=== PATIENT | female | born 1940 | race Caucasian/White ===

== ENCOUNTER 2023-03-08 18:48 | Emergency (ER) | payer MEDICARE ==
[2023-03-08 19:00] VITALS: RESP 18; TEMP 97.9
[2023-03-08] MEDS ORDERED: SODIUM CHLORIDE 0.9% 1,000 ML IV STA (19:19)
--- NOTE | 2023-03-08 19:30 | ED ---
General Adult HPI - General Chief complaint: Abdominal Pain Stated complaint: pain in back/side Time Seen by Provider: 03/08/23 19:04 Source: patient Mode of arrival: wheelchair Limitations: no limitations - History of Present Illness Initial comments: Dictation was produced using [employer] dictation software. please excuse any grammatical, word or spelling errors. Chief Complaint: 82-year-old female presents with 1 day of right lower quadrant abdominal pain History of Present Illness: Is a 2-year-old female presents to emergency de partment for right lower quadrant abdominal pain 1 day. Patient states that her pain and she started in the back and now is only in the front. States that she does have history of hysterectomy. She does not have history of appendectomy. No fevers. Vaginal discharge. No nausea vomiting or diarrhea. States that the pain is severe The ROS documented in this emergency department record has been reviewed and confirmed by me. Those systems with pertinent positive or negative responses have been documented in the HPI. All other systems are other negative and/or noncontributory. - Related Data Allergies Allergy/AdvReac Type Severity Reaction Status Date / Time morphine Allergy low blood Verified 03/08/23 19:01 pressure Review of Systems ROS Statement: Those systems with pertinent positive or pertinent negative responses have been documented in the HPI. ROS Other: All systems not noted in ROS Statement are negative. Past Medical History Past Medical History: Hyperlipidemia, Hypertension History of Any Multi-Drug Resistant Organisms: None Reported Past Surgical History: Cholecystectomy, Hysterectomy, Orthopedic Surgery Additional Past Surgical History / Comment(s): rt wrist Past Psychological History: No Psychological Hx Reported Smoking Status: Never smoker Past Alcohol Use History: None Reported Past Drug Use History: None Reported General Exam - General Exam Comments Initial Comments: PHYSICAL EXAM: General Impression: Alert and oriented x3, not in acute distress HEENT: Normocephalic atraumatic, extra-ocular movements intact, pupils equal and reactive to light bilaterally, mucous membranes moist. Cardiovascular: Heart regular rate and rhythm Chest: Able to complete full sentences, no retractions, no tachypnea Abdomen: abdomen soft, no rebound tenderness, pain in McBurney's point, non- distended, no organomegaly Musculoskeletal: Pulses present and equal in all extremities, no peripheral edema Motor: no focal deficits noted Neurological: CN II-XII grossly intact, no focal motor or sensory deficits noted Skin: Intact with no visualized rashes Psych: Normal affect and mood Limitations: no limitations Course Vital Signs 03/08/23 03/08/23 03/08/23 18:54 20:50 21:32 Temperature 97.9 F Pulse Rate 77 78 81 Respiratory 18 18 18 Rate Blood Pressure 90/54 111/72 107/83 O2 Sat by Pulse 97 94 L 96 Oximetry 03/08/23 03/08/23 21:52 22:23 Temperature Pulse Rate 84 89 Respiratory 18 18 Rate Blood Pressure 118/79 103/80 O2 Sat by Pulse 95 96 Oximetry - Reevaluation(s) Reevaluation #1: 03/08/23 19:30 Patient seen and evaluated and ER room #6. Triage vital signs reviewed with blood pressure of 90/54. Reevaluation #2: 03/08/23 21:28 Case discussed with [facility] surgeon on-call, Dr. Broderick. He reviewed the images and did not feel that patient was a good candidate for care at our facility due to aneurysm extending into the chest cavity Reevaluation #3: 03/08/23 21:[address] Bell at [facility] states that he will contact vascular surgeon stat to see if this is a patient amenable for transfer Reevaluation #4: 03/08/23 22:03 Case was discussed with Dr. Bell at [facility]. He did get in contact with vascular surgery who will try to get in contact with vascular surgery attending for transfer. Simultaneously [facility] was contacted for possible transfer. Pending discussion with surgical accepting physician 03/08/23 22:04 Reevaluation #5: 03/08/23 22:13 case discussed with jennifer at [facility] for possible transfer. Pending discussion with specialist for acceptance Medical Decision Making - Medical Decision Making Was pt. sent in by a medical professional or institution (Dr., PA, [employer], urgent care, hospital, or senior living...) When possible be specific @ -No Did you speak to anyone other than the patient for history (EMS, parent, family, police, friend...)? What history was obtained from this source @ -Daughter at the bedside reports that patient is having abdominal pain Did you review nursing and triage notes (agree or disagree)? Why? @ -I reviewed and agree with nursing and triage notes Were old charts reviewed (outside hosp., previous admission, EMS record, old EKG, old radiological studies, urgent care reports/EKG's, senior living records)? Report findings @ -No old charts were reviewed Differential Diagnosis (chest pain, altered mental status, abdominal pain women, abdominal pain men, vaginal bleeding, musculoskeletal, weakness, fever, dyspnea, syncope, headache, dizziness, GI bleed, back pain, seizure, CVA, palpatations, mental health)? @ -DDifferential Abdominal Pain Women: Appendicitis, Cholecystitis, diverticulosis, ischemic bowel, pancreatitis, hepatitis, UTI, gastroenteritis, AAA, incarcerated hernia, bowel obstruction, co nstipation, inflammatory bowel, hepatitis, peptic ulcer disease, splenic infarction, perforated viscus, vulvitis, ovarian torsion, PID, kidney stone, placenta abruption, this is not meant to be an all-inclusive list EKG interpreted by me (3pts min.). @ -None done X-rays interpreted by me (1pt min.). @ -None done CT interpreted by me (1pt min.). @ -CT of the abdomen and pelvis without contrast shows dilated aortic aneurysm with evidence of rupture. CT angiography was ordered showing aortic aneurysm without any active extravasation but with small previous hemorrhage U/S interpreted by me (1pt. min.). @ -None done What testing was considered but not performed or refused? (CT, X-rays, U/S, labs)? Why? @ -None What meds were considered but not given or refused? Why? @ -None Did you discuss the management of the patient with other professionals ( professionals i.e. , PA, [employer], lab, RT, psych nurse, mental health social worker, cheese pancake roller, teacher, life science technical officer, case investigator)? Give summary @ -Discuss with multiple professionals as mentioned above. Case was discussed with Dr. Clay at [facility] who is accepting of patient for transfer. Was smoking cessation discussed for >3mins.? @ -No Was critical care preformed (if so, how long)? @ -yes , 73 minutes Were there social determinants of health that impacted care today? How? (Homelessness, low income, unemployed, alcoholism, drug addiction, transportation, low edu. Level, literacy, decrease access to med. care, group home, rehab)? @ -No Was there de-escalation of care discussed even if they declined (Discuss DNR or withdrawal of care, Hospice)? DNR status @ -No What co-morbidities impacted this encounter? (DM, HTN, Smoking, COPD, CAD, Cancer, CVA, ARF, Chemo, Hep., AIDS, mental health diagnosis, sleep apnea, morbid obesity)? @ -None Was patient admitted / discharged? Hospital course, mention meds given and route, prescriptions, significant lab abnormalities, going to OR and other pertinent info. @ -82-year-old female presents emergency Department with chief complaint of abdominal pain. Vital signs upon arrival are within acceptable limits. Erwin savannah's blood pressure being stable. Patient does not appear to be in acute distress. CT angiography shows ruptured aortic aneurysm. There does not appear to be any active extravasation based off of CT angiography. Patient be transferred to [facility] Undiagnosed new problem with uncertain prognosis? @ -No Drug Therapy requiring intensive monitoring for toxicity (Heparin, Nitro, Insulin, Cardizem)? @ -No Were any procedures done? @ -No Diagnosis/symptom? Acute, or Chronic, or Acute on Chronic? Uncomplicated (without systemic symptoms) or Complicated (systemic symptoms)? @ - ruptured aortic aneurysm Side effects of treatment? @ -No Exacerbation, Progression, or Severe Exacerbation? @ -No Poses a threat to life or bodily function? How? (Chest pain, [place], [place], pneumonia, PE, COPD, DKA, ARF, appy, cholecystitis, CVA, Diverticulitis, Homicidal, Suicidal, threat to staff... and all critical care pts) @ -yes - Lab Data Result diagrams: 03/08/23 19:21 03/08/23 19:21 Lab Results 03/08/23 03/08/23 03/08/23 Range/Units 19:21 19:21 19:21 WBC 9.8 (3.8-10.6) k/uL RBC 4.77 (3.80-5.40) m/uL Hgb 12.8 (11.4-16.0) gm/dL Hct 38.2 (34.0-46.0) % MCV 80.0 (80.0-100.0) fL MCH 26.9 (25.0-35.0) pg MCHC 33.6 (31.0-37.0) g/dL RDW 14.7 (11.5-15.5) % Plt Count 163 (150-450) k/uL MPV 8.9 Neutrophils % 78 % Lymphocytes % 13 % Monocytes % 6 % Eosinophils % 2 % Basophils % 1 % Neutrophils # 7.7 (1.3-7.7) k/uL Lymphocytes # 1.3 (1.0-4.8) k/uL Monocytes # 0.5 (0-1.0) k/uL Eosinophils # 0.2 (0-0.7) k/uL Basophils # 0.0 (0-0.2) k/uL PT 9.6 (9.0-12.0) sec INR 0.9 (<1.2) APTT 23.1 (22.0-30.0) sec Sodium 136 L (137-145) mmol/L Potassium 4.5 (3.5-5.1) mmol/L Chloride 99 (98-107) mmol/L Carbon Dioxide 25 (22-30) mmol/L Anion Gap 12 mmol/L BUN 41 H (7-17) mg/dL Creatinine 1.70 H (0.52-1.04) mg/dL Est GFR (CKD-EPI)AfAm 32 (>60 ml/min/1.73 sqM) Est GFR (CKD-EPI)NonAf 28 (>60 ml/min/1.73 sqM) Glucose 113 H (74-99) mg/dL Plasma Lactic Acid Zion (0.7-2.0) mmol/L Calcium 9.2 (8.4-10.2) mg/dL Magnesium 2.3 (1.6-2.3) mg/dL Total Bilirubin 1.1 (0.2-1.3) mg/dL AST 19 (14-36) U/L ALT 13 (4-34) U/L Alkaline Phosphatase 43 (38-126) U/L Total Protein 6.7 (6.3-8.2) g/dL Albumin 4.0 (3.5-5.0) g/dL 03/08/23 Range/Units 19:21 WBC (3.8-10.6) k/uL RBC (3.80-5.40) m/uL Hgb (11.4-16.0) gm/dL Hct (34.0-46.0) % MCV (80.0-100.0) fL MCH (25.0-35.0) pg MCHC (31.0-37.0) g/dL RDW (11.5-15.5) % Plt Count (150-450) k/uL MPV Neutrophils % % Lymphocytes % % Monocytes % % Eosinophils % % Basophils % % Neutrophils # (1.3-7.7) k/uL Lymphocytes # (1.0-4.8) k/uL Monocytes # (0-1.0) k/uL Eosinophils # (0-0.7) k/uL Basophils # (0-0.2) k/uL PT (9.0-12.0) sec INR (<1.2) APTT (22.0-30.0) sec Sodium (137-145) mmol/L Potassium (3.5-5.1) mmol/L Chloride (98-107) mmol/L Carbon Dioxide (22-30) mmol/L Anion Gap mmol/L BUN (7-17) mg/dL Creatinine (0.52-1.04) mg/dL Est GFR (CKD-EPI)AfAm (>60 ml/min/1.73 sqM) Est GFR (CKD-EPI)NonAf (>60 ml/min/1.73 sqM) Glucose (74-99) mg/dL Plasma Lactic Acid Zion 1.3 (0.7-2.0) mmol/L Calcium (8.4-10.2) mg/dL Magnesium (1.6-2.3) mg/dL Total Bilirubin (0.2-1.3) mg/dL AST (14-36) U/L ALT (4-34) U/L Alkaline Phosphatase (38-126) U/L Total Protein (6.3-8.2) g/dL Albumin (3.5-5.0) g/dL Disposition Clinical Impression: Ruptured aortic aneurysm Disposition: OTHER INSTITUTION NOT DEFINED Condition: Critical Referrals: Lynn Rabago MD [Primary Care Provider] - 1-2 days Time of Disposition: 22:30 - Out of Hospital Transfer - Req. Specs Out of Hospital Transfer - Requested Specifics: Other Emergency Center ([facility])
[2023-03-08 20:01] LABS: Basophils % (A) 1 %; Eosinophils # (A) 0.2 k/uL (0-0.7); Eosinophils % (A) 2 %; HCT 38.2 % (34.0-46.0); HGB 12.8 gm/dL (11.4-16.0); Lymphocytes # (A) 1.3 k/uL (1.0-4.8); Lymphocytes % (A) 13 %; MCH 26.9 pg (25.0-35.0); MCHC 33.6 g/dL (31.0-37.0); Mean Platelet Volume 8.9; Monocytes # (A) 0.5 k/uL (0-1.0); Monocytes % (A) 6 %; Neutrophils # (A) 7.7 k/uL (1.3-7.7); Neutrophils % (A) 78 %; Platelet Count 163 k/uL (150-450); RBC 4.77 m/uL (3.80-5.40); RDW 14.7 % (11.5-15.5); WBC 9.8 k/uL (3.8-10.6)
[2023-03-08 20:13] LABS: Calcium 9.2 mg/dL (8.4-10.2); Magnesium 2.3 mg/dL (1.6-2.3); Potassium 4.5 mmol/L (3.5-5.1); Total Bilirubin 1.1 mg/dL (0.2-1.3); Total Protein 6.7 g/dL (6.3-8.2)
[2023-03-08 20:18] LABS: INR 0.9 (<1.2); Partial Thromboplastin Time 23.1 sec (22.0-30.0); Prothrombin Time 9.6 sec (9.0-12.0)
--- NOTE | 2023-03-08 21:21 | CT ---
EXAMINATION TYPE: CT abdomen pelvis wo con CT DLP: 1472.8 mGycm, Automated exposure control for dose reduction was used. DATE OF EXAM: 03/08/2023 8:49 PM COMPARISON: No direct comparisons CLINICAL INDICATION:Female, 82 years old with history of rlq pain; RLQ abd pain TECHNIQUE: Standard CT of the abdomen and pelvis without IV or oral contrast. Lack of IV or oral co ntrast limits evaluation of solid and hollow organ viscera. Coronal and sagittal reformats were perfo rmed. FINDINGS: LOWER CHEST: Trace right pleural effusion. ABDOMEN LIVER: Few scattered cysts. GALLBLADDER AND BILE DUCTS: Gallbladder versus cyst adjacent to the fossa ligament. PANCREAS: Unremarkable noncontrast appearance. SPLEEN: Unremarkable noncontrast appearance. ADRENAL GLANDS: Unremarkable noncontrast appearance. KIDNEYS AND URETERS: No evidence of hydronephrosis or renal calculus. Bladder renal cysts with larges t involving the inferior pole the right kidney measuring up to 6.6 cm. Largest involving the superior pole the left kidney measuring up to 4.6 cm. There is a hyperdense 2.3 cm exophytic lesion emanating from the inferior pole the left kidney. This is favored to represent a proteinaceous/hemorrhagic cys t. Cortical thinning of both kidneys suggestive of medical renal disease. PELVIS BLADDER: Under distended, limiting evaluation. REPRODUCTIVE: The uterus is surgically absent. ABDOMEN & PELVIS STOMACH AND BOWEL: Colonic diverticulosis without evidence for acute diverticulitis. The appendix is within normal limits. No evidence of bowel obstruction. PERITONEUM/RETROPERITONEUM: No evidence of pneumoperitoneum. There is small amount of hemorrhage into the right retroperitoneum coursing along the iliopsoas muscle. VASCULATURE: There is a bilobed infrarenal abdominal aortic aneurysm the more superior one at the lev el of the renal arteries measures up to 7.8 cm with a focal defect along its right lateral wall (seri es 21, image 29). There is subtle hyperdense material in this region extending into the retroperitone al space consistent with blood products. The inferior one measures up to 6.9 cm (series 201, image 45 ). The mid portion measures up to 3.5 cm in diameter. Moderate atherosclerotic calcification of the a wilder and its branches. The iliac arteries appeared normal in caliber. Evaluation of these is limited due to lack of intravenous contrast. MUSCULOSKELETAL: No acute osseous abnormalities. Dextroscoliotic curvature of the lumbar spine. LYMPH NODES: No gross evidence for lymphadenopathy. SOFT TISSUE/ABDOMINAL WALL: Unremarkable IMPRESSION: 1. Bilobed infrarenal abdominal aortic aneurysm measuring up to 7.8 cm with rupture of the superior portion and small amount of hemorrhage extending into the right retroperitoneal space. Evaluation is limited due to lack of intravenous contrast. Vascular surgery consultation is recommended. 2. Bilateral renal cysts with a hyperdense left lower pole 2.3 cm cyst. This is favored to represent a proteinaceous/hemorrhagic cyst. Further evaluation with renal ultrasound is recommended if patient becomes stable. 3. Colonic diverticulosis without evidence for acute diverticulitis. 4. Trace right pleural effusion. Findings called to and discussed with Dr. Gibbs at 9:06 PM on 03/08/2023.
[2023-03-08] MEDS ORDERED: LABETALOL 200 MG in SODIUM CHLORIDE 0.9% 160 ML IV ONE (21:28)
[2023-03-08] MEDS ORDERED: ESMOLOL IN SODIUM CHLORIDE PMX 2.5 GM in SALINE 1 250ML.BAG IV SCH (21:30)
--- NOTE | 2023-03-08 21:54 | CT ---
EXAMINATION TYPE: CT angio thor/abd pel aorta CT DLP: 1568.7 mGycm, Automated exposure control for dose reduction was used. DATE OF EXAM: 03/08/2023 9:36 PM COMPARISON: CT abdomen pelvis from the same date. CLINICAL INDICATION:Female, 82 years old with history of ruptured AAA; PHH, dissection TECHNIQUE: Dissection protocol: Multiple axial CT images of the chest, abdomen, and pelvis were obtai conor prior and to the administration of IV contrast. 3-D reformats and maximum intensity projection fo rmat were performed on a separate workstation. Then the abdomen was scanned after administration of 8 0 cc of Isovue 370 IV contrast. FINDINGS: ARTERIAL VASCULATURE: Aneurysm dilatation of the ascending thoracic aorta measuring up to 4.1 cm. The descending thoracic aorta measures up to 3.0 cm. Moderate atherosclerotic calcification of the aorta and its branches. Redemonstration of infrarenal bilobed abdominal aortic aneurysm. No evidence for d issection. There is significant mural thrombus identified within the aneurysm. No extravasation of co ntrast identified outside the aorta. There is surrounding blood products again demonstrated and not s ignificantly change from prior examination surrounding the abdominal aorta extending into the right r etroperitoneal space. The superior aspect of the aneurysm measures up to 7.6 cm. The inferior aspect of the aneurysm measures up to 6.4 cm. The bilateral renal arteries are patent. The celiac access and SMA are patent. The PHIL appears patent. Both iliac arteries appear patent. PULMONARY ARTERIAL VASCULATURE: Normal caliber. No evidence of filling defect to suggest pulmonary em bolus. VENOUS SYSTEM: Unremarkable. Lungs/pleura: Trace right pleural effusion. No focal consolidation, pneumothorax, pleural effusion. N o suspicious pulmonary nodule or mass. Heart: Within normal limits. Moderate coronary microcalcifications. No pericardial effusion. Mediastinum: No gross evidence of adenopathy. Lower Neck: No significant findings. Abdomen: Liver: Few scattered cysts.. Gallbladder and Bile ducts: Gallbladder versus cyst adjacent to the falciform ligament. Pancreas: Unremarkable. Spleen: Unremarkable. Adrenal glands: Unremarkable. Kidneys and Ureters: No hydronephrosis or renal calculi. Bilateral cortical thinning suggestive chron ic medical renal disease. Redemonstration of a left inferior pole exophytic cyst measuring up to 2.3 cm. Stomach and Bowel: Colonic diverticulosis without evidence for acute diverticulitis. No evidence of bowel obstruction. Peritoneum/retroperitoneum: No evidence of pneumoperitoneum or adenopathy. Small amount of blood pro ducts around the aorta extending into the retrograde just space along the right iliopsoas muscle. Bladder: Under distended, limiting evaluation.. Reproductive: Post hysterectomy. Abdominal wall/soft tissues: Unremarkable. Musculoskeletal: The osseous structures appear intact. Mild degenerative disc disease. IMPRESSION: 1. Redemonstration of bilobed infrarenal abdominal aortic aneurysm with similar surrounding small he morrhage extending to the right retroperitoneum. No evidence for active extravasation at this time. F indings suggest previous leak without active extravasation. 2. Aneurysmal dilatation throughout the thoracic aorta measuring up to 4.1 cm in the ascending porti on. No evidence for aortic dissection. 3. Colonic diverticulosis without evidence for acute diverticulitis. 4. Redemonstration of a hyperdense exophytic left inferior pole renal lesion. This again may represe nt a hemorrhagic/proteinaceous cyst versus other. Outpatient renal ultrasound is recommended. 5. Trace right pleural effusion.
[2023-03-08 22:25] VITALS: BP 103/80; PULSE 89
[2023-03-08] MEDS ORDERED: LABETALOL 5 MG/ML VIAL MDV IVP STA (22:51)
== END 2023-03-08 22:30 | disposition other institution (70) ==
LOC: EC 18:48
DX: I71.43 Infrarenal abdominal aortic aneurysm, without rupture (principal); J90 Pleural effusion, not elsewhere classified; K57.30 Diverticulosis of large intestine without perforation or abscess without bleeding; N28.1 Cyst of kidney, acquired; N89.8 Other specified noninflammatory disorders of vagina; I10 Essential (primary) hypertension; Z88.5 Allergy status to narcotic agent
CPT/HCPCS: 36415; 80053; 83605; 83735; 85025; 85610; 85730; 87635; 71275; 74176; 74174; 99291; 96360; 96361; Q9967